=== PATIENT | female | born 1995 | race Caucasian/White ===

== ENCOUNTER 2019-09-12 10:13 | Emergency (ER) | payer OTHER ==
[~2019-09-12] VITALS: Ht 167.6 cm; Wt 88.5 kg
[~2019-09-12 10:13] MED LIST: Clomiphene Citr50 MG PO; IBUP600 PO
[2019-09-12] MEDS ORDERED: IBU600 M1 PO (12:20)
== END 2019-09-12 12:51 | disposition home or self-care (01) ==
LOC: ER 10:13
DX: Q68.8 Other specified congenital musculoskeletal deformities (principal)
CPT/HCPCS: 73630; 99283-25